=== PATIENT | female | born 1945 | race Caucasian/White ===

== ENCOUNTER 2024-01-09 18:08 | Inpatient (IN) ==
[2024-01-09] MEDS: HYDROmorphone 0.5 MG/0.5 ML SYRINGE IV PRN (18:40)
[2024-01-09 18:45] LABS: Basophils # (Auto) 0.05 K/mcL (0.00-0.30); Basophils % (Auto) 0.5 % (0.0-2.0); Eosinophils % (Auto) 2.2 % (0.0-7.0); Hematocrit 37.8 % (34.1-44.9); Hemoglobin 12.1 g/dL (11.2-15.7); Lymphocytes # (Auto) 1.22 K/mcL (1.50-4.80); Lymphocytes % (Auto) 13.2 % (15.5-49.0); Mean Cell Volume 104.7 fL (80.0-100.0); Mean Platelet Volume 11.5 fL (8.8-12.5); Monocytes # (Auto) 0.77 K/mcL (0.10-0.90); Monocytes % (Auto) 8.3 % (1.0-12.0); Neutrophils % (Auto) 75.6 % (38.0-78.0); Platelet Count 128 K/mcL (140-440); RBC 3.61 M/mcL (3.59-5.38); Red Cell Distribution Width 13.5 % (11.5-14.5); WBC 9.3 K/mcL (4.5-11.0)
[2024-01-09 19:05] LABS: ALT/SGPT < 5 U/L (<40); AST/SGOT 24 U/L (<32); Albumin 3.4 gm/dL (3.2-5.2); Alkaline Phosphatase 102 U/L (39-117); Bilirubin,Total 0.4 mg/dL (0.1-1.0); Blood Urea Nitrogen 15 mg/dL (8-23); Calcium 8.7 mg/dL (8.6-10.4); Carbon Dioxide 26 mmol/L (22-30); Chloride 105 mmol/L (96-108); Globulin 3.4 gm/dL (2.2-3.7); Glomerular Filtration Rate 82; Glucose 120 mg/dL (70-105)
[2024-01-09 19:20] LABS: INR 1.1 (0.9-1.1); Prothrombin Time 14.9 sec (11.9-14.5)
[2024-01-09] MEDS ORDERED: TRANEXAMIC ACID 1,000 MG/10 ML VIAL ONE (19:38)
[2024-01-09] MEDS ORDERED: PROPOFOL 200 MG/20 ML VIAL IV ONE (19:38)
[2024-01-09] MEDS ORDERED: KETAMINE 50 MG/ML Syringe IV ONE (19:38)
[2024-01-09] MEDS ORDERED: LIDOCAINE 2% PF 5 ML VIAL ONE (19:38)
[2024-01-09] MEDS ORDERED: ONDANSETRON 4 MG/2 ML VIAL ONE (19:38)
[2024-01-09] MEDS ORDERED: MAGNESIUM SULFATE 2 GM/50 ML BAG IV ONE (19:38)
[2024-01-09] MEDS ORDERED: DEXAMETHASONE 10 MG/ML VIAL ONE (19:38)
[2024-01-09 19:59] LABS: Appearance,Urine Clear (Clear); Bilirubin,Urine Negative (Negative); Color,Urine Yellow; Culture Indicated,Urine No; Glucose,Urine (UA) Negative (Negative); Ketones,Urine Negative (Negative); Leukocyte Esterase,Urine Negative /uL (Negative); Nitrate,Urine Negative (Negative); Protein,Urine Negative (Negative); Urine Blood Negative ery/mcL (Negative); Urobilinogen,Urine Normal
[2024-01-09] MEDS: ceFAZolin 1 GM VIAL ONE (20:06)
[2024-01-09] MEDS: ceFAZolin 2 GM in DEXTROSE 5% IN WATER 50 ML IV SCH (20:07)
[2024-01-09] MEDS ORDERED: PHENYLephrine 1 MG/10 ML SYRINGE (ANEST) ONE (20:33)
[2024-01-09] MEDS ORDERED: ePHEDrine 50 MG/5 ML SYRINGE (ANEST) IV ONE (20:48)
[2024-01-09] MEDS ORDERED: PROMETHAZINE 25 MG/ML VIAL IV PRN (21:36)
[2024-01-09] MEDS ORDERED: MEPERIDINE 25 MG/ML VIAL IV PRN (21:36)
[2024-01-09] MEDS ORDERED: ONDANSETRON 4 MG/2 ML VIAL IV PRN ×2 (21:36→23:01)
[2024-01-09] MEDS ORDERED: IPRATROPIUM/ALBUTEROL 3 ML AMPUL.NEB NEB PRN ×2 (21:36→23:01)
[2024-01-09] MEDS ORDERED: diphenhydrAMINE 50 MG/ML VIAL IV PRN (21:36)
[2024-01-09] MEDS ORDERED: LACTATED RINGERS 250 ML IV PRN (21:36)
[2024-01-09] MEDS ORDERED: fentaNYL 100 MCG/2 ML VIAL IV PRN (21:36)
[2024-01-09] MEDS: NALOXONE HCL 0.4 MG/ML VIAL IV PRN (22:14)
[2024-01-09] MEDS: ACETAMINOPHEN 1,000 MG/100 ML BAG IV ONE (22:17)
[2024-01-09] MEDS ORDERED: HYDROcodone/APAP 5/325MG TABLET PO PRN (23:01)
[2024-01-09] MEDS ORDERED: morphine 4 MG/ML VIAL IV PRN (23:01)
[2024-01-09] MEDS ORDERED: BENZOCAINE/MENTHOL 1 LOZENGE PO PRN (23:01)
[2024-01-09] MEDS ORDERED: SENNOSIDES 1 TABLET PO PRN (23:01)
[2024-01-09] MEDS ORDERED: POTASSIUM CHLORIDE 20 MEQ TABLET PO PRN ×2 (23:01)
[2024-01-09] MEDS ORDERED: MAGNESIUM SULFATE 2 GM/50 ML BAG IV PRN (23:01)
[2024-01-09] MEDS ORDERED: ACETAMINOPHEN 325 MG TABLET PO PRN (23:01)
[2024-01-09] MEDS ORDERED: POTASSIUM CHLORIDE 40 MEQ in DEXTROSE 5% IN WATER 500 ML IV PRN (23:01)
[2024-01-09] MEDS ORDERED: POLYETHYLENE GLYCOL 3350 17 GM PACKET PO PRN (23:01)
[2024-01-09] MEDS: 0.9 % SODIUM CHLORIDE 1,000 ML IV SCH (23:09)
[2024-01-09] MEDS: 0.9 % SODIUM CHLORIDE 10 ML SYRINGE IV SCH (23:10)
[2024-01-09] MEDS: DOCUSATE SODIUM 100 MG CAPSULE PO SCH (23:10)
[2024-01-09] MEDS: ACETAMINOPHEN 500 MG TABLET PO SCH (23:11)
[2024-01-09] MEDS: TRANEXAMIC ACID 1,000 MG/10 ML VIAL IV ONE (23:11)
[2024-01-09] MEDS: TRANEXAMIC ACID 1,000 MG/10 ML VIAL ONE (23:28)
[2024-01-10] MEDS: LACTATED RINGERS 1,000 ML IV SCH ×2 (01:09→05:18)
[2024-01-10] MEDS: ceFAZolin 1 GM VIAL ONE (03:26)
[2024-01-10] MEDS: ceFAZolin 2 GM in DEXTROSE 5% IN WATER 50 ML IV SCH (03:36)
[2024-01-10 06:17] LABS: Basophils # (Auto) 0.01 K/mcL (0.00-0.30); Basophils % (Auto) 0.1 % (0.0-2.0); Eosinophils # (Auto) 0 K/mcL (0.00-0.70); Eosinophils % (Auto) 0 % (0.0-7.0); Hematocrit 34.4 % (34.1-44.9); Hemoglobin 10.6 g/dL (11.2-15.7); Lymphocytes # (Auto) 0.35 K/mcL (1.50-4.80); Lymphocytes % (Auto) 5.1 % (15.5-49.0); Mean Cell Volume 109.6 fL (80.0-100.0); Mean Corpuscular HGB Conc 30.8 g/dL (31.0-36.0); Mean Platelet Volume 12.1 fL (8.8-12.5); Monocytes # (Auto) 0.45 K/mcL (0.10-0.90); Monocytes % (Auto) 6.6 % (1.0-12.0); Neutrophils % (Auto) 88.2 % (38.0-78.0); Platelet Count 118 K/mcL (140-440); RBC 3.14 M/mcL (3.59-5.38); Red Cell Distribution Width 13.5 % (11.5-14.5); WBC 6.9 K/mcL (4.5-11.0)
[2024-01-10 06:45] LABS: ALT/SGPT < 5 U/L (<40); AST/SGOT 26 U/L (<32); Alkaline Phosphatase 84 U/L (39-117); Bilirubin,Direct < 0.2 mg/dL (0-0.3); Bilirubin,Total 0.2 mg/dL (0.1-1.0); Blood Urea Nitrogen 17 mg/dL (8-23); Calcium 8.2 mg/dL (8.6-10.4); Carbon Dioxide 27 mmol/L (22-30); Chloride 106 mmol/L (96-108); Globulin 2.9 gm/dL (2.2-3.7); Glomerular Filtration Rate 60; Glucose 161 mg/dL (70-105); Lactate Dehydrogenase 168 U/L (135-225); Triglycerides 34 mg/dL (<150); Uric Acid 3.9 mg/dL (2.5-8.0)
[2024-01-10] MEDS: oxyCODONE IR 5 MG TABLET PO PRN (08:53)
[2024-01-10] MEDS: METHOCARBAMOL 500 MG TABLET PO PRN (15:48)
[2024-01-10] MEDS: MIRTAZAPINE 15 MG TABLET PO SCH (21:00)
[2024-01-10] MEDS: ENOXAPARIN 40 MG/0.4 ML SYRINGE SQ SCH (21:00)
[2024-01-11 06:16] LABS: Basophils # (Auto) 0.03 K/mcL (0.00-0.30); Basophils % (Auto) 0.5 % (0.0-2.0); Eosinophils # (Auto) 0.07 K/mcL (0.00-0.70); Eosinophils % (Auto) 1.1 % (0.0-7.0); Hemoglobin 9.3 g/dL (11.2-15.7); Lymphocytes # (Auto) 1.28 K/mcL (1.50-4.80); Lymphocytes % (Auto) 20.1 % (15.5-49.0); Mean Cell Volume 110.3 fL (80.0-100.0); Mean Platelet Volume 12.1 fL (8.8-12.5); Monocytes # (Auto) 0.82 K/mcL (0.10-0.90); Monocytes % (Auto) 12.9 % (1.0-12.0); Neutrophils % (Auto) 65.2 % (38.0-78.0); Platelet Count 116 K/mcL (140-440); RBC 2.72 M/mcL (3.59-5.38); Red Cell Distribution Width 13.5 % (11.5-14.5); WBC 6.4 K/mcL (4.5-11.0)
[2024-01-11 08:08] LABS: ALT/SGPT < 5 U/L (<40); AST/SGOT 27 U/L (<32); Albumin 2.9 gm/dL (3.2-5.2); Alkaline Phosphatase 75 U/L (39-117); Bilirubin,Direct < 0.2 mg/dL (0-0.3); Bilirubin,Total 0.2 mg/dL (0.1-1.0); Blood Urea Nitrogen 30 mg/dL (8-23); Carbon Dioxide 27 mmol/L (22-30); Chloride 104 mmol/L (96-108); Globulin 2.8 gm/dL (2.2-3.7); Glomerular Filtration Rate 47; Glucose 105 mg/dL (70-105); Lactate Dehydrogenase 150 U/L (135-225); Phosphorous 4.9 mg/dL (2.5-4.5); Triglycerides 44 mg/dL (<150); Uric Acid 4.6 mg/dL (2.5-8.0)
[2024-01-11] MEDS: DONEPEZIL 10 MG TABLET PO SCH (08:17)
[2024-01-11] MEDS: CITALOPRAM 20 MG TABLET PO SCH (08:18)
[2024-01-11] MEDS ORDERED: ACETAMINOPHEN 1,000 MG/100 ML BAG IV PRN (09:47)
[2024-01-12 06:06] LABS: Basophils # (Auto) 0.04 K/mcL (0.00-0.30); Basophils % (Auto) 0.6 % (0.0-2.0); Eosinophils # (Auto) 0.21 K/mcL (0.00-0.70); Eosinophils % (Auto) 3.1 % (0.0-7.0); Hematocrit 26.8 % (34.1-44.9); Hemoglobin 8.4 g/dL (11.2-15.7); Lymphocytes # (Auto) 1.47 K/mcL (1.50-4.80); Lymphocytes % (Auto) 21.5 % (15.5-49.0); Mean Cell Volume 111.7 fL (80.0-100.0); Mean Corpuscular HGB Conc 31.3 g/dL (31.0-36.0); Mean Platelet Volume 11.8 fL (8.8-12.5); Monocytes # (Auto) 0.79 K/mcL (0.10-0.90); Monocytes % (Auto) 11.6 % (1.0-12.0); Neutrophils % (Auto) 63.1 % (38.0-78.0); Platelet Count 106 K/mcL (140-440); Red Cell Distribution Width 13.6 % (11.5-14.5); WBC 6.8 K/mcL (4.5-11.0)
[2024-01-12 06:48] LABS: ALT/SGPT < 5 U/L (<40); AST/SGOT 32 U/L (<32); Albumin 2.7 gm/dL (3.2-5.2); Alkaline Phosphatase 76 U/L (39-117); Bilirubin,Direct < 0.2 mg/dL (0-0.3); Bilirubin,Total 0.3 mg/dL (0.1-1.0); Blood Urea Nitrogen 37 mg/dL (8-23); Calcium 7.9 mg/dL (8.6-10.4); Carbon Dioxide 25 mmol/L (22-30); Chloride 109 mmol/L (96-108); Globulin 2.7 gm/dL (2.2-3.7); Glomerular Filtration Rate 60; Glucose 95 mg/dL (70-105); Lactate Dehydrogenase 149 U/L (135-225); Phosphorous 2.6 mg/dL (2.5-4.5); Triglycerides 60 mg/dL (<150); Uric Acid 4.7 mg/dL (2.5-8.0)
[2024-01-12] MEDS: oxyCODONE IR 5 MG TABLET PO PRN (19:37)
[2024-01-13 06:18] LABS: Basophils # (Auto) 0.06 K/mcL (0.00-0.30); Eosinophils # (Auto) 0.18 K/mcL (0.00-0.70); Hematocrit 25.4 % (34.1-44.9); Lymphocytes # (Auto) 1.04 K/mcL (1.50-4.80); Lymphocytes % (Auto) 17.4 % (15.5-49.0); Mean Cell Volume 106.7 fL (80.0-100.0); Mean Corpuscular HGB Conc 31.5 g/dL (31.0-36.0); Mean Platelet Volume 11.8 fL (8.8-12.5); Monocytes # (Auto) 0.55 K/mcL (0.10-0.90); Monocytes % (Auto) 9.2 % (1.0-12.0); Neutrophils % (Auto) 69.1 % (38.0-78.0); Platelet Count 115 K/mcL (140-440); RBC 2.38 M/mcL (3.59-5.38); Red Cell Distribution Width 13.9 % (11.5-14.5)
[2024-01-13 06:40] LABS: ALT/SGPT 5 U/L (<40); AST/SGOT 30 U/L (<32); Albumin 2.6 gm/dL (3.2-5.2); Alkaline Phosphatase 69 U/L (39-117); Bilirubin,Direct 0.2 mg/dL (<0.3); Bilirubin,Total 0.5 mg/dL (0.1-1.0); Blood Urea Nitrogen 23 mg/dL (8-23); Calcium 7.9 mg/dL (8.6-10.4); Carbon Dioxide 28 mmol/L (22-30); Chloride 107 mmol/L (96-108); Globulin 2.6 gm/dL (2.2-3.7); Glomerular Filtration Rate 86; Glucose 97 mg/dL (70-105); Lactate Dehydrogenase 162 U/L (135-225); Phosphorous 1.9 mg/dL (2.5-4.5); Triglycerides 59 mg/dL (<150); Uric Acid 3.6 mg/dL (2.5-8.0)
[2024-01-13] MEDS: FUROSEMIDE 40 MG/4 ML VIAL IV ONE (08:56)
[2024-01-13] MEDS: ALBUMIN HUMAN 12.5 GM/50 ML VIAL IV ONE (09:09)
[2024-01-13] MEDS: PHOSPHORUS 250 MG TABLET PO SCH (10:00)
[2024-01-13] MEDS: NEUTRA PHOS 1 PACKET PO SCH (10:00)
[2024-01-14] MEDS ORDERED: CITALOPRAM 20 MG TABLET PO SCH (09:00)
== END 2024-01-13 13:10 ==
LOC: ED 18:08 → SUR 19:34 → MEDSUR 22:50
PROVIDERS: ADMIT Internal Medicine; ATTEND Internal Medicine

== ENCOUNTER 2025-07-16 17:12 | Inpatient (IN) ==
[2025-07-16] MEDS ORDERED: IOPAMIDOL 100 ML BOTTLE IV ONE (17:13)
[2025-07-16] MEDS: 0.9 % SODIUM CHLORIDE 500 ML IV ONE (17:35)
[2025-07-16 18:20] LABS: Basophils # (Auto) 0.04 K/mcL (0.00-0.30); Basophils % (Auto) 0.5 % (0.0-2.0); Eosinophils # (Auto) 0.05 K/mcL (0.00-0.70); Eosinophils % (Auto) 0.6 % (0.0-7.0); Hematocrit 38.5 % (34.1-44.9); Hemoglobin 12.5 g/dL (11.2-15.7); Lymphocytes # (Auto) 1.28 K/mcL (1.50-4.80); Lymphocytes % (Auto) 15.4 % (15.5-49.0); Mean Corpuscular HGB Conc 32.5 g/dL (31.0-36.0); Monocytes # (Auto) 0.92 K/mcL (0.10-0.90); Monocytes % (Auto) 11.1 % (1.0-12.0); Neutrophils % (Auto) 72.3 % (38.0-78.0); Platelet Count 109 K/mcL (140-440); RBC 3.69 M/mcL (3.59-5.38); WBC 8.3 K/mcL (4.5-11.0)
[2025-07-16 18:23] LABS: ALT/SGPT 8 U/L (<40); AST/SGOT 19 U/L (<32); Albumin 3.1 gm/dL (3.2-5.2); Albumin/Globulin Ratio 0.7 (1.0-2.3); Alkaline Phosphatase 93 U/L (39-117); Anion Gap 7.0 (8.0-16.0); Bilirubin,Total 1.1 mg/dL (0.1-1.0); Blood Urea Nitrogen 13 mg/dL (8-23); Calcium 8.3 mg/dL (8.6-10.4); Carbon Dioxide 30 mmol/L (22-30); Chloride 101 mmol/L (96-108); Globulin 4.2 gm/dL (2.2-3.7); Glucose 118 mg/dL (70-105); Potassium 3.8 mmol/L (3.3-5.1); Sodium 138 mmol/L (133-145)
[2025-07-16 18:59] LABS: Bacteria,Urine 0 /hpf (0); Bilirubin,Urine NEGATIVE (Negative); Color,Urine LT. YELLOW; Glucose,Urine (UA) NEGATIVE (Negative); Ketones,Urine NEGATIVE (Negative); Leukocyte Esterase,Urine SMALL /uL (Negative); PH,Urine 7.0 (5.0-9.0); Protein,Urine NEGATIVE (Negative); Specific Gravity,Urine 1.010 (1.000-1.035); Urobilinogen,Urine 0.2 mg/dL
[2025-07-16] MEDS: CEFEPIME 2 GM VIAL IV ONE (19:19)
[2025-07-16] MEDS: FUROSEMIDE 100 MG/10 ML VIAL IV ONE (19:47)
[2025-07-16] MEDS: ACETAMINOPHEN 1,000 MG/100 ML BAG IV ONE (19:47)
[2025-07-16 21:01] LABS: RBC Morphology NORMAL (Normal)
[2025-07-16] MEDS ORDERED: METOPROLOL TARTRATE 5 MG/5 ML VIAL IV PRN (21:47)
[2025-07-16] MEDS ORDERED: METOCLOPRAMIDE 10 MG/2 ML VIAL IV PRN (21:47)
[2025-07-16] MEDS ORDERED: ONDANSETRON 4 MG/2 ML VIAL IV PRN (21:47)
[2025-07-16] MEDS ORDERED: SENNOSIDES 1 TABLET PO PRN (21:47)
[2025-07-16] MEDS ORDERED: POLYETHYLENE GLYCOL 3350 17 GM PACKET PO PRN (21:47)
[2025-07-16] MEDS ORDERED: POTASSIUM CHLORIDE 40 MEQ in DEXTROSE 5% IN WATER 500 ML IV PRN (21:47)
[2025-07-16] MEDS ORDERED: POTASSIUM CHLORIDE 20 MEQ TABLET PO PRN (21:47)
[2025-07-16] MEDS ORDERED: MAGNESIUM SULFATE 2 GM/50 ML BAG IV PRN (21:47)
[2025-07-16] MEDS: CEFEPIME 1 GM VIAL IV SCH (22:19)
[2025-07-17 06:35] LABS: ALT/SGPT 8 U/L (<40); AST/SGOT 17 U/L (<32); Albumin 3.0 gm/dL (3.2-5.2); Albumin/Globulin Ratio 0.7 (1.0-2.3); Alkaline Phosphatase 88 U/L (39-117); Anion Gap 7.0 (8.0-16.0); Bilirubin,Direct 0.4 mg/dL (<0.3); Bilirubin,Total 0.7 mg/dL (0.1-1.0); Blood Urea Nitrogen 16 mg/dL (8-23); Calcium 8.3 mg/dL (8.6-10.4); Carbon Dioxide 31 mmol/L (22-30); Chloride 102 mmol/L (96-108); Globulin 4.4 gm/dL (2.2-3.7); Glucose 147 mg/dL (70-105); Phosphorous 4.0 mg/dL (2.5-4.5); Potassium 3.4 mmol/L (3.3-5.1); Sodium 140 mmol/L (133-145); Triglycerides 29 mg/dL (<150); Uric Acid 5.0 mg/dL (2.5-8.0)
[2025-07-17 06:38] LABS: Basophils # (Auto) 0.01 K/mcL (0.00-0.30); Basophils % (Auto) 0.2 % (0.0-2.0); Eosinophils # (Auto) 0 K/mcL (0.00-0.70); Eosinophils % (Auto) 0 % (0.0-7.0); Hematocrit 39.9 % (34.1-44.9); Hemoglobin 12.6 g/dL (11.2-15.7); Lymphocytes # (Auto) 0.42 K/mcL (1.50-4.80); Lymphocytes % (Auto) 7.9 % (15.5-49.0); Mean Corpuscular HGB Conc 31.6 g/dL (31.0-36.0); Monocytes # (Auto) 0.07 K/mcL (0.10-0.90); Monocytes % (Auto) 1.3 % (1.0-12.0); Neutrophils % (Auto) 90.4 % (38.0-78.0); Platelet Count 119 K/mcL (140-440); RBC 3.76 M/mcL (3.59-5.38); WBC 5.3 K/mcL (4.5-11.0)
[2025-07-17] MEDS ORDERED: ENOXAPARIN 40 MG/0.4 ML SYRINGE SQ SCH (09:00)
[2025-07-17] MEDS: FUROSEMIDE 40 MG/4 ML VIAL IV SCH (09:40)
[2025-07-17] MEDS: METOPROLOL TARTRATE 25 MG TABLET PO SCH (09:40)
[2025-07-17] MEDS: CITALOPRAM 20 MG TABLET PO SCH (09:40)
[2025-07-17] MEDS: APIXABAN 5 MG TABLET PO SCH (09:40)
[2025-07-17] MEDS: DOCUSATE SODIUM 100 MG CAPSULE PO SCH (09:56)
[2025-07-17] MEDS: ACETAMINOPHEN 325 MG TABLET PO PRN (15:57)
[2025-07-17] MEDS: POTASSIUM CHLORIDE 20 MEQ TABLET PO PRN (18:51)
[2025-07-17] MEDS: DONEPEZIL 10 MG TABLET PO SCH (21:08)
[2025-07-17] MEDS: 0.9 % SODIUM CHLORIDE 10 ML SYRINGE IV SCH (21:45)
[2025-07-18 06:34] LABS: ALT/SGPT 8 U/L (<40); AST/SGOT 20 U/L (<32); Albumin 2.8 gm/dL (3.2-5.2); Albumin/Globulin Ratio 0.7 (1.0-2.3); Alkaline Phosphatase 76 U/L (39-117); Anion Gap 7.0 (8.0-16.0); Bilirubin,Direct 0.3 mg/dL (<0.3); Bilirubin,Total 0.5 mg/dL (0.1-1.0); Blood Urea Nitrogen 17 mg/dL (8-23); Calcium 8.3 mg/dL (8.6-10.4); Carbon Dioxide 31 mmol/L (22-30); Chloride 99 mmol/L (96-108); Globulin 4.1 gm/dL (2.2-3.7); Glucose 96 mg/dL (70-105); Phosphorous 2.5 mg/dL (2.5-4.5); Potassium 3.7 mmol/L (3.3-5.1); Sodium 137 mmol/L (133-145); Triglycerides 41 mg/dL (<150); Uric Acid 5.1 mg/dL (2.5-8.0)
[2025-07-18] MEDS: IPRATROPIUM/ALBUTEROL 3 ML AMPUL.NEB NEB PRN (08:38)
[2025-07-18] MEDS: ALBUMIN HUMAN 12.5 GM/50 ML VIAL IV ONE (08:43)
[2025-07-18] MEDS: METOPROLOL TARTRATE 25 MG TABLET PO SCH (10:17)
[2025-07-18] MEDS: acetaZOLAMIDE SOD 500 MG VIAL IV ONE (13:15)
[2025-07-18] MEDS: MELATONIN 3 MG TABLET PO ONE (20:30)
[2025-07-18] MEDS: diphenhydrAMINE 50 MG/ML VIAL IV ONE (20:34)
[2025-07-19 06:49] LABS: ALT/SGPT 11 U/L (<40); AST/SGOT 21 U/L (<32); Albumin 2.8 gm/dL (3.2-5.2); Albumin/Globulin Ratio 0.8 (1.0-2.3); Alkaline Phosphatase 71 U/L (39-117); Anion Gap 4.0 (8.0-16.0); Bilirubin,Direct 0.2 mg/dL (<0.3); Bilirubin,Total 0.5 mg/dL (0.1-1.0); Blood Urea Nitrogen 21 mg/dL (8-23); Calcium 8.8 mg/dL (8.6-10.4); Carbon Dioxide 32 mmol/L (22-30); Chloride 105 mmol/L (96-108); Globulin 3.6 gm/dL (2.2-3.7); Glucose 84 mg/dL (70-105); Phosphorous 3.1 mg/dL (2.5-4.5); Potassium 3.2 mmol/L (3.3-5.1); Sodium 141 mmol/L (133-145); Triglycerides 55 mg/dL (<150); Uric Acid 5.4 mg/dL (2.5-8.0)
[2025-07-19] MEDS: acetaZOLAMIDE SOD 500 MG VIAL IV ONE (09:20)
[2025-07-20] MEDS ORDERED: cefTRIAXone 1 GM VIAL IV SCH (09:00)
== END 2025-07-19 13:06 | DRG 291 ==
LOC: ED 17:12 → ICU 21:46 → MEDSUR 07-18 19:08
PROVIDERS: ADMIT Internal Medicine; ATTEND Internal Medicine